=== PATIENT | male | born 1950 | race Caucasian/White ===

== ENCOUNTER 2016-11-14 10:12 | Emergency (ER) | payer MEDICARE, OTHER ==
[2016-11-14 10:13] VITALS: BMI 25.0
[2016-11-14 10:25] VITALS: BP 153/83; PULSE 70; RESP 18; TEMP 98; O2SAT 99
--- NOTE | 2016-11-14 10:43 | C.PDOC ---
History Of Present Illness 66 yr old male presents to the ER stating for the past 3 months he has had left ankle pain and a red laquita to the lateral malleolus. Also reports of cramps in the leg for 1 year and mostly at night time. Patient states he has been following up with his doctor who injects an unknown substance in his ankle. Denies any recent medicine use. Also denies fever, nausea, vomiting, back pain, weakness or numbness. Time Seen by Provider: 11/14/16 10:40 Chief Complaint (Nursing): Lower Extremity Problem/Injury History Per: Patient, Service Tester (RN ) History/Exam Limitations: no limitations, language barrier (Citizen Of [place] ) Onset/Duration Of Symptoms: Days (3 months ) Current Symptoms Are (Timing): Still Present Past Medical History Reviewed: Historical Data, Nursing Documentation, Vital Signs Vital Signs: Last Vital Signs Temp 98 F 11/14/16 10:24 Pulse 70 11/14/16 10:24 Resp 18 11/14/16 10:24 BP 153/83 H 11/14/16 10:24 Pulse Ox 99 11/14/16 11:36 Surgical History: Cholecystectomy (10/2014 IN [facility]) Family History: States: No Known Family Hx - Social History Hx Tobacco Use: No Hx Alcohol Use: No Hx Substance Use: No Review Of Systems Except As Marked, All Systems Reviewed And Found Negative. Constitutional: Negative for: Fever Gastrointestinal: Negative for: Nausea, Vomiting Musculoskeletal: Positive for: Other ((+) Left ankle pain ) Neurological: Negative for: Weakness, Numbness Physical Exam - Physical Exam Appears: Well, Non-toxic, No Acute Distress Skin: Warm, Dry, No Rash Head: Atraumatic, Normacephalic Oral Mucosa: Moist Chest: Symmetrical, No Tenderness Cardiovascular: Rhythm Regular, No Murmur Respiratory: Normal Breath Sounds, No Rales, No Rhonchi, No Stridor, No Wheezing Extremity: Normal ROM, No Tenderness, No Calf Tenderness, No Swelling, Other ((+ ) Mild hyperemia of the lateral malleolus) Neurological/Psych: Oriented x3, Normal Speech, Normal Motor ED Course And Treatment O2 Sat by Pulse Oximetry: 99 Medical Decision Making Medical Decision Making: PLAN: * X-Ray - Left Ankle * Toradol IM Disposition Counseled Patient/Family Regarding: Diagnosis, Need For Followup - Disposition Referrals: Alessandro Armstrong MD [Staff Provider] - Disposition: HOME/ ROUTINE Disposition Time: 11:15 Condition: GOOD Prescriptions: Naproxen [Naprosyn] 1 tab PO BID PRN #25 tab PRN Reason: Pain Instructions: Leg Cramps (ED), Arthralgia (ED) Print Language: KOREAN - Clinical Impression Clinical Impression: Joint pain, Leg cramps, sleep related - Scribe Statement The provider has reviewed the documentation as recorded by the Marcel Escobar Provider Attestation: All medical record entries made by the Marcel were at my direction and personally dictated by me. I have reviewed the chart and agree that the record accurately reflects my personal performance of the history, physical exam, medical decision making, and the department course for this patient. I have also personally directed, reviewed, and agree with the discharge instructions and disposition.
--- NOTE | 2016-11-14 12:44 | RAD ---
PROCEDURE: Left Ankle Radiographs. HISTORY: Joint pain COMPARISON: None FINDINGS: BONES: Normal. No fracture. JOINTS: Normal. No osteoarthritis. Ankle mortise maintained. Talar dome intact SOFT TISSUES: Normal. OTHER FINDINGS: None. IMPRESSION: Normal left ankle radiographs.
== END 2016-11-14 11:32 | disposition home or self-care (01) ==
LOC: C.ER 10:12
DX: M25.572 Pain in left ankle and joints of left foot (principal); G47.62 Sleep related leg cramps
CPT/HCPCS: 73610; 96372; 99284; J1885